=== PATIENT | female | born 1960 | race Hispanic/Latino ===

== ENCOUNTER 2022-01-19 09:01 | Emergency (ER) | payer OTHER ==
[~2022-01-19] VITALS: Ht 160 cm; Wt 63.5 kg
[2022-01-19 09:25] LABS: BASOPHILS % (AUTO) 0.5 % (0.0-5.0); EOSINOPHILS % (AUTO) 1.7 % (0.0-8.0); HEMATOCRIT 35.5 % (36-48); LYMPHOCYTES % (AUTO) 14.3 % (21.0-51.0); MEAN CORPUSCULAR HGB CONC 31.8 g/dL (32.0-36.0); MEAN CORPUSCULAR VOLUME 75.5 fL (79-99); NEUTROPHILS % (AUTO) 73.9 % (40.0-77.0); PLATELET COUNT (AUTO) 354 K/uL (130-400); RED CELL DISTRIBUTION WIDTH 15.3 % (11.0-15.5); WHITE BLOOD COUNT (AUTO) 11.7 K/uL (4.8-10.8)
[2022-01-19 09:38] LABS: ALBUMIN 3.4 g/dL (3.5-5.0); BILIRUBIN,TOTAL 0.3 mg/dL (0.2-1.0); CREATININE 0.8 mg/dL (0.5-1.5)
[2022-01-19 09:40] VITALS: BP 150/77
[2022-01-19 09:43] LABS: APPEARANCE,URINE CLEAR (CLEAR); BILIRUBIN,URINE NEGATIVE (NEGATIVE); COLOR,URINE YELLOW (YELLOW); GLUCOSE, URINE (UA) NEGATIVE (NEGATIVE); KETONES,URINE NEGATIVE (NEGATIVE); LEUKOCYTE ESTERASE ,URINE MODERATE (NEGATIVE); NITRATE,URINE NEGATIVE (NEGATIVE); OCCULT BLOOD,URINE LARGE (NEGATIVE); PROTEIN,URINE TRACE mg/dL (NEGATIVE); UROBILINOGEN,URINE 0.2 mg/dL (0.2-1.0)
[2022-01-19 09:49] LABS: AMPHET/METH SCREEN,URINE NEGATIVE (NEGATIVE); BARBITURATE SCREEN, URINE NEGATIVE (NEGATIVE); BENZODIAZEPINES SCREEN,URINE NEGATIVE (NEGATIVE); CANNABINOID SCREEN,URINE NEGATIVE (NEGATIVE); COCAINE SCREEN,URINE NEGATIVE (NEGATIVE); OPIATE SCREEN,URINE NEGATIVE (NEGATIVE); PHENCYCLIDINE SCREEN,URINE NEGATIVE (NEGATIVE)
[2022-01-19 09:50] LABS: BACTERIA,URINE Few /HPF (None Seen)
[2022-01-19] MEDS ORDERED: ACETAMINOPHEN 500 MG TABLET ONE (10:20)
[2022-01-19] MEDS ORDERED: ACETAMINOPHEN 500 MG TABLET PO STA (10:20)
[2022-01-19] MEDS ORDERED: CEPH500B PO (10:40)
[2022-01-19] MEDS ORDERED: CEFTRIAXONE 1G VIAL ONE (10:42)
[2022-01-19] MEDS ORDERED: CEFTRIAXONE 1G VIAL IM ONE (11:00)
== END 2022-01-19 13:43 | disposition home or self-care (01) ==
LOC: EDH 09:01
DX: N30.90 Cystitis, unspecified without hematuria (principal); N85.9 Noninflammatory disorder of uterus, unspecified; E78.00 Pure hypercholesterolemia, unspecified; I10 Essential (primary) hypertension; Z98.890 Other specified postprocedural states
CPT/HCPCS: 36415; 74176; 80053; 80305; 81001; 84484; 85025; 87088; 93005; 96372; 99285; J0696